=== PATIENT | male | born 1940 | race Caucasian/White ===

== ENCOUNTER 2018-04-23 14:08 | Emergency (ER) | payer OTHER ==
[~2018-04-23] VITALS: Ht 182.9 cm; Wt 99.8 kg
[~2018-04-23 14:08] MED LIST: AMBIEN CR 6.26.25 MG PO; AMBIENCR; ATROVENT INH; AVODART0.5 MG; CARVEDILOL12.5 MG PO; CELEBREX 200 M200 MG PO; CIALIS20 MG PO; COZAAR 25 MG TA25 M2 PO; DEXEDRINE15 MG PO; DIOVAN HCT 3201 EAC1; DIOVAN320 MG PO; FLOVENT HFA 1110 MCG IH; FOSAMAX 70 MG T70 MG PO; KEFLEX500 MG PO; LIPITOR10 MG PO; NEFAZODONE HCL250 MG; NORFLEX100 MG PO; NORVASC10 MG PO; PREDNISONE 1 MG1 M1 PO; PREDNISONE 5 MG5 MG PO; PROTONIX40 M2 PO; SINGULAIR 10 MG10 M1 PO; SYNTHROID125 MCG PO; TESTIM5 GM TD; TUDORZA PRESS400 MCG INH; ULTRAM 50MG TAB50 MG PO; ZPAK PO
[2018-04-23 15:45] LABS: ABSOLUTE BASOPHILS 0.1 thou/uL (0.0-0.2); ABSOLUTE EOSINOPHILS 0.2 thou/uL (0.0-0.7); ABSOLUTE LYMPHOCYTES 1.1 thou/uL (0.8-5.3); ABSOLUTE MONOCYTES 0.4 thou/uL (0.0-1.2); ABSOLUTE NEUTROPHILS 4.8 thou/uL (1.6-8.1); BASOPHILS 0.9 %; EOSINOPHILS 3.4 %; HEMATOCRIT 35.8 % (42.0-52.0); LYMPHOCYTES 16.3 %; MCH 30.5 pg (26.0-34.0); MCHC 33.7 g/dL (28.0-37.0); MCV 90.6 fL (80.0-100.0); MONOCYTES 6.4 %; MPV 8.1 fl. (7.2-11.1); NUCLEATED RBCS 0 /100WBC; PLATELET COUNT* 163 thou/uL (150-400); RBC 3.95 mil/uL (4.50-6.00); RDW-CV 15.7 % (10.5-14.5); WBC 6.6 thou/uL (4.0-11.0)
[2018-04-23 15:48] LABS: CALCIUM 8.2 mg/dL (8.5-10.1); CREATININE 1.2 mg/dL (0.6-1.3); POTASSIUM 3.3 mmol/L (3.5-5.1)
[2018-04-23 15:53] LABS: ALBUMIN 3.6 g/dL (3.4-5.0); TOTAL BILIRUBIN 0.5 mg/dL (<0.1-1.0); TOTAL PROTEIN 6.8 g/dL (6.4-8.2)
[2018-04-23 19:00] VITALS: BP 162/91
== END 2018-04-23 19:01 | disposition home or self-care (01) ==
LOC: M.ERS 14:08
PROVIDERS: Physician Assistant
DX: I10 Essential (primary) hypertension (principal); J45.909 Unspecified asthma, uncomplicated

== ENCOUNTER 2019-05-06 07:27 | Inpatient (IN) | payer OTHER ==
[~2019-05-06] VITALS: Ht 185.4 cm; Wt 99.8 kg
--- NOTE | ~2019-05-06 | PROC ---
[address] [address] PROCEDURE REPORT Name: DANA TANNER Room: [address] IN ..#: [id number] Admission: 05/06/19 Attend Phys: Aaron Liriano MD Discharge: Date of : 42 Report #: [id number] THIS REPORT FOR: //name// For GI report, please see the Provation report in Perceptive 7 content. By: [id number] Records Staff MALINDA /ISIDRO
[2019-05-06 07:28] VITALS: BP 113/71
[2019-05-06 07:49] LABS: ABSOLUTE EOSINOPHILS 0.2 thou/uL (0.0-0.7); ABSOLUTE LYMPHOCYTES 1.3 thou/uL (0.8-5.3); ABSOLUTE MONOCYTES 0.4 thou/uL (0.0-1.2); ABSOLUTE NEUTROPHILS 5.4 thou/uL (1.6-8.1); BASOPHILS 0.6 %; EOSINOPHILS 2.4 %; HEMATOCRIT 23.6 % (42.0-52.0); LYMPHOCYTES 17.7 %; MCH 29.1 pg (26.0-34.0); MCHC 33.7 g/dL (28.0-37.0); MCV 86.2 fL (80.0-100.0); MPV 8.4 fl. (7.2-11.1); NUCLEATED RBCS 0 /100WBC; PLATELET COUNT* 139 thou/uL (150-400); POLYS 73.3 %; RBC 2.74 mil/uL (4.50-6.00); WBC 7.4 thou/uL (4.0-11.0)
[2019-05-06 07:53] LABS: CALCIUM 8.4 mg/dL (8.5-10.1); CREATININE 1.4 mg/dL (0.6-1.3); POTASSIUM 3.5 mmol/L (3.5-5.1)
[2019-05-06 08:03] LABS: APTT 21.7 Seconds (25.0-31.3); INR 1.1; PROTIME 11.6 Seconds (9.20-11.50)
[2019-05-06 08:04] LABS: ALBUMIN 3.5 g/dL (3.4-5.0); TOTAL BILIRUBIN 0.3 mg/dL (<0.1-1.0); TOTAL PROTEIN 6.1 g/dL (6.4-8.2)
[2019-05-06 09:23] LABS: HEMATOCRIT 20.7 % (42.0-52.0); HEMOGLOBIN 7.1 gm/dL (14.0-18.0)
[2019-05-06 10:27] VITALS: BP 130/81
[2019-05-06 10:45] VITALS: BP 114/71
[2019-05-06 11:55] VITALS: BP 111/74; BP 120/80; BP 123/71; BP 127/77
[2019-05-06] MEDS ORDERED: LOSARTAN-HCTZ1 EAC3 PO (12:28)
[2019-05-06] MEDS ORDERED: KLOR-CON M2020 MEQ PO (12:29)
[2019-05-06] MEDS ORDERED: MAGNESIUM250 M1 PO (12:30)
[2019-05-06] MEDS ORDERED: CALCIUM500 MG PO (12:30)
[2019-05-06] MEDS ORDERED: CIALIS5 MG PO (12:31)
[2019-05-06] MEDS ORDERED: SLEEP AID50 MG PO (12:33)
--- NOTE | 2019-05-06 15:04 | EKG ---
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
[2019-05-06 15:58] LABS: HEMATOCRIT 22.3 % (42.0-52.0); HEMOGLOBIN 7.6 gm/dL (14.0-18.0)
[2019-05-06 16:00] VITALS: BP 138/71
[2019-05-06 20:00] VITALS: BP 122/77
[2019-05-06 21:59] LABS: HEMATOCRIT 21.7 % (42.0-52.0); HEMOGLOBIN 7.4 gm/dL (14.0-18.0)
[2019-05-07 03:57] LABS: ABSOLUTE EOSINOPHILS 0.2 thou/uL (0.0-0.7); ABSOLUTE LYMPHOCYTES 1.5 thou/uL (0.8-5.3); ABSOLUTE MONOCYTES 0.5 thou/uL (0.0-1.2); ABSOLUTE NEUTROPHILS 3.5 thou/uL (1.6-8.1); BASOPHILS 0.8 %; EOSINOPHILS 3.8 %; HEMATOCRIT 20.1 % (42.0-52.0); LYMPHOCYTES 26.3 %; MCH 29.3 pg (26.0-34.0); MCV 86.2 fL (80.0-100.0); MONOCYTES 7.8 %; MPV 8.4 fl. (7.2-11.1); NUCLEATED RBCS 0 /100WBC; PLATELET COUNT* 116 thou/uL (150-400); POLYS 61.3 %; RBC 2.33 mil/uL (4.50-6.00); RDW-CV 15.9 % (10.5-14.5); WBC 5.8 thou/uL (4.0-11.0)
[2019-05-07 04:11] LABS: CALCIUM 7.4 mg/dL (8.5-10.1); CREATININE 1.1 mg/dL (0.6-1.3); POTASSIUM 3.1 mmol/L (3.5-5.1)
[2019-05-07 04:20] LABS: HEMOGLOBIN 6.8 gm/dL (14.0-18.0)
[2019-05-07 04:48] VITALS: BP 112/84
[2019-05-07 05:49] VITALS: BP 135/64; BP 136/77; BP 142/71; BP 148/88
[2019-05-07 08:30] VITALS: BP 136/64
[2019-05-07 10:08] LABS: HEMATOCRIT 22.7 % (42.0-52.0); HEMOGLOBIN 7.7 gm/dL (14.0-18.0)
--- NOTE | 2019-05-07 12:55 | CON ---
[address] [address] CONSULTATION Name: DANA TANNER Room: [address] IN ..#: [id number] Admission: 05/06/19 Attend Phys: Aaron Liriano MD Discharge: Date of : 42 Report #: [id number] THIS REPORT FOR: //name// CC: Aaron Razo DICTATED BY: Chela King [facility] DATE OF SERVICE: 05/07/2019 Please note at the time of this dictation, the patient was seen and physically examined by myself. REASON FOR CONSULTATION: Melanotic stool. HISTORY OF PRESENT ILLNESS: This is a pleasant 78-year-old male who noted the day before admission, he was feeling a little lightheaded when getting up from sitting to standing and then he began to notice some black tarry stools. The patient states that normally his bowels move soft and formed on a daily basis. He did state that when he had the black stool, it was much looser and he did have more than he normally does on a daily basis, and then the following day when he was admitted, he was having more of the black stools and feeling much worse with his lightheadedness. The patient did have an EGD last fall for his Michaud's esophagus in which he is being treated by ____ at [facility] and has undertaken numerous HALO procedures as well. He states his last colonoscopy was many years ago, cannot remember if he ever had any polyps, but he has had diverticulitis in the past, but nothing recently. The patient denies any nausea, vomiting, any abdominal pain, just having the loose stools that are black. The patient does state that he takes two ibuprofen every other night, alternating with Tylenol and then also Benadryl to help him sleep and for his generalized body aches. ALLERGIES: No known drug allergies. MEDICATIONS: From home include Celebrex, Dexedrine, Protonix, Tudorza, Atrovent, Synthroid, Singulair, Ultram, Ambien, Fosamax, Flovent, Keflex, Norvasc, and Plavix. PAST MEDICAL HISTORY: COPD, chronic bronchitis, but no oxygen; hypertension; asthma; history of diverticulitis in the past; Michaud's esophagus. PAST SURGICAL HISTORY: HALO procedures, four shoulder surgeries, ankle surgery, inguinal hernia, and right knee replacement. He has also had a Watchman of the left [place] [address] CONSULTATION Name: DANA TANNER Room: [address]#: [id number] Admission: 05/06/19 Attend Phys: Aaron Liriano MD Discharge: Date of : 42 Report #: [id number] FAMILY HISTORY: Negative for any GI or female cancers. SOCIAL HISTORY: Denies any alcohol, tobacco, or illegal drug use. REVIEW OF SYSTEMS: Twelve-point review of systems is essentially negative except what is mentioned in the HPI. PHYSICAL EXAMINATION: VITAL SIGNS: Temperature 36.8, pulse 78, respirations 17, and blood pressure 112/84. HEART: Regular rate and rhythm. LUNGS: Clear, slightly diminished. ABDOMEN: Soft, positive bowel sounds in all 4 quadrants with no masses or tenderness noted. LABORATORY DATA: Hemoglobin on admission, he was 8 and has dropped down, received a unit on admission. He dropped down to 6.8 this morning and he is getting a second unit of blood. White count is 5.8, platelets are 116. BUN on admission was 68, he is down to 33. Creatinine is 1.1. His GFR is 65. His LFTs are completely normal. IMAGING STUDIES: Chest x-ray was normal. IMPRESSION: 1. Melenic stool. 2. Fatigue. 3. Long segment Michaud's esophagus, history of HALO procedures at [facility]. 4. Nonsteroidal anti-inflammatory drug use; ibuprofen and Celebrex. 5. Thrombocytopenia. 6. Chronic obstructive pulmonary disease. PLAN: 1. EGD and colonoscopy with Dr. Baumann today. 2. Protonix drip. 3. Further recommendations to be made once the procedure has been performed. Thank you for allowing us to participate in this patient's care. Please do not hesitate to call with any questions in regard to this consult. <ELECTRONICALLY SIGNED> By: Ros Baumann MD 05/07/19 [id number] Baumann MD /nt
[2019-05-07 19:42] VITALS: BP 145/85
[2019-05-08 00:58] VITALS: BP 145/85
[2019-05-08 03:55] LABS: HEMATOCRIT 20.9 % (42.0-52.0); HEMOGLOBIN 7.1 gm/dL (14.0-18.0); MCH 29.4 pg (26.0-34.0); MCHC 33.8 g/dL (28.0-37.0); MPV 8.1 fl. (7.2-11.1); RBC 2.4 mil/uL (4.50-6.00); WBC 4.9 thou/uL (4.0-11.0)
[2019-05-08 04:34] LABS: MAGNESIUM 1.7 mg/dL (1.8-2.4); POTASSIUM 4.1 mmol/L (3.5-5.1)
[2019-05-08 08:31] VITALS: BP 154/66
[2019-05-08 12:45] LABS: CALCIUM 7.3 mg/dL (8.5-10.1); POTASSIUM 4.1 mmol/L (3.5-5.1)
[2019-05-08] MEDS ORDERED: PROTONIX40 M1 PO (13:25)
[2019-05-08 14:57] VITALS: BP 127/78; BP 133/67; BP 143/89; BP 149/84
[2019-05-08] MEDS ORDERED: PLAVIX 75 MG TA75 M1 PO (17:55)
== END 2019-05-08 18:45 | disposition home or self-care (01) | DRG 378 ==
LOC: M.ERS 07:27 → M.ORTHSURG 08:52 → M.TBA-ER 08:52 → M.ORTHSURG 10:39
PROVIDERS: Internal Medicine Gastroenterology; Nurse Practitioner Adult Health; Personal Emergency Response Attendant; ADMIT Internal Medicine
PROC: 30233N1 Transfusion of Nonautologous Red Blood Cells into Peripheral Vein, Percutaneous Approach (ICD-10-PCS; principal; 2019-05-06)
PROC: 0DJD8ZZ Inspection of Lower Intestinal Tract, Via Natural or Artificial Opening Endoscopic (ICD-10-PCS; 2019-05-07)
PROC: 0DB48ZX Excision of Esophagogastric Junction, Via Natural or Artificial Opening Endoscopic, Diagnostic (ICD-10-PCS; 2019-05-07)
DX: K26.4 Chronic or unspecified duodenal ulcer with hemorrhage (principal); D62 Acute posthemorrhagic anemia; E87.0 Hyperosmolality and hypernatremia; N17.9 Acute kidney failure, unspecified; K57.31 Diverticulosis of large intestine without perforation or abscess with bleeding; K22.70 Barrett's esophagus without dysplasia; J44.9 Chronic obstructive pulmonary disease, unspecified; I10 Essential (primary) hypertension; Z96.651 Presence of right artificial knee joint; D69.6 Thrombocytopenia, unspecified; E87.6 Hypokalemia; E83.42 Hypomagnesemia; K44.9 Diaphragmatic hernia without obstruction or gangrene; K64.8 Other hemorrhoids; I48.91 Unspecified atrial fibrillation; G47.33 Obstructive sleep apnea (adult) (pediatric); K21.9 Gastro-esophageal reflux disease without esophagitis; Z98.890 Other specified postprocedural states; Z79.899 Other long term (current) drug therapy